=== PATIENT | male | born 1960 ===

== ENCOUNTER 2017-05-03 21:31 | Emergency (ER) | payer SELFPAY ==
[2017-05-03 21:37] VITALS: O2SAT 95
--- NOTE | 2017-05-03 22:32 | ED PDOC ---
HPI: Psych/Substance Abuse Time Seen by Provider: 05/03/17 21:36 Chief Complaint (Nursing): Alcohol Ingestion Chief Complaint (Provider): Denies complaint Past Medical History Vital Signs: Last Vital Signs Temp 97.8 F 05/03/17 21:35 Pulse 92 H 05/03/17 21:35 Resp 16 05/03/17 21:35 BP 156/87 H 05/03/17 21:35 Pulse Ox 95 05/03/17 21:35 - Allergies Allergies/Adverse Reactions: Allergies Allergy/AdvReac Type Severity Reaction Status Date / Time No Known Allergies Allergy Verified 05/03/17 21:35 - ECG O2 Sat by Pulse Oximetry: 95 Medical Decision Making Medical Decision Making: Pt with steady gait. Disposition - Clinical Impression Clinical Impression: Alcohol abuse - Patient ED Disposition Is Patient to be Admitted: No Counseled Patient/Family Regarding: Diagnosis, Need For Followup - Disposition [facility]errals[facility] Disposition: Routine/Home Disposition Time: 22:17 Condition: GOOD Instructions: Abuse of Alcohol (ED)
[2017-05-03 22:38] VITALS: BP 142/90; PULSE 89; RESP 18; TEMP 98.3
== END 2017-05-03 22:41 | disposition home or self-care (01) ==
LOC: H.ER 21:31
DX: F10.129 Alcohol abuse with intoxication, unspecified (principal)